=== PATIENT | female | born 1980 | race Caucasian/White ===

== ENCOUNTER 2020-02-13 10:02 | Outpatient (CLI) | payer OTHER, MEDICARE, SELFPAY ==
--- NOTE | 2020-02-13 10:27 | XR_ITS ---
WS: [id number] Chest 2 views, 02/13/2020 Clinical Data: COUGH Comparison: PA and lateral chest, 12/05/2017. Findings: No nodules, masses or effusions are seen. The heart is normal. The pulmonary vascularity is not increased. No pneumonia or pneumothorax is seen. XR/XR chest 2V* [id number] Impression: Negative chest.
== END 2020-02-13 10:03 | disposition home or self-care (01) ==
LOC: RAD 10:11
PROVIDERS: PCP Family Medicine; Visit Provider Family Medicine
DX: R05 Cough (principal)
CPT/HCPCS: 71046

== ENCOUNTER → 2020-07-23 14:33 | Outpatient (BNVA) | payer OTHER, MEDICARE, SELFPAY | PROVIDERS: PCP Family Medicine; Visit Provider Surgery | DX: Z01.812 Encounter for preprocedural laboratory examination (principal); Z20.822 Contact with and (suspected) exposure to COVID-19 | CPT/HCPCS: 87635 ==

== ENCOUNTER 2020-07-28 08:07 | Day surgery (SDC) | payer OTHER, MEDICARE, SELFPAY ==
[2020-07-27 16:42] VITALS: BMI 38.8
--- NOTE | 2020-07-28 08:51 | ANES.PREANE2 ---
Pre-Anesthetic Assessment Pre-Anesthetic Assessment: Height/Weight: Height 1.7 m Weight 112.491 kg Preop Diagnosis: Subcutaneous mass right lower back Proposed Procedure: Operation Date: 07/28/20 09:40 Proposed Procedures p Excision of lipoma right lower back 46145 D17.9(Not Applicable) - Kana Evans MD Was Beta Elbert taken within 24 hours: N/A Was Clonidine taken within 24 hours: N/A Social: Social History: Tobacco and No alcohol Exam: Pre-Anes Outpt Exam: alert, oriented x 3, clear to auscultation bilaterally and regular rate & rhythm Airway: Submandibular: WNL Cervical ROM: WNL MP: 1 Additional comments: Edentulous Pulmonary: Pulmonary: Cough CV/HEM: CV/HEM: HTN : : None reported Hepatic: Hepatic: None reported GI: GI: None reported Metabolic: Metabolic: DM, Hyperlipidemia and Morbid obesity Neuropsych: Neuropsych: Neuropathy Anesthetic Plan: ASA status: 3 Anesthesia: MAC PFSH Anesthesia PFSH: Medical History (Updated 07/23/20 @ 09:50 by Kana Evans MD) Anxiety Diabetes mellitus Hypercholesteremia Hypertension Neuropathy Surgical History (Updated 07/23/20 @ 09:50 by Kana Evans MD) H/O removal of cyst History of cholecystectomy History of hysterectomy Family History (Updated 07/23/20 @ 09:32 by Rhona Kline LPN) Father Diabetes Social History (Updated 07/23/20 @ 09:32 by Rhona Kline LPN) Smoking and tobacco status: current every day smoker cigarettes Packs smoked per day: 1 Second hand smoke exposure: Yes Alcohol intake: current Alcohol intake frequency: holidays/special occasions only Data Anesthesia Cardiac Studies: No Data to Display
--- NOTE | 2020-07-28 09:00 | W.PM.OPSUD ---
Surgery/Procedure H&P Update DATE OF PROCEDURE: July 28, 2020 DATE H&P PERFORMED: 07/23/20 H&P UPDATE INFORMATION: I have reviewed H&P completed within last 30 days, I have examined patient prior to procedure and No changes to prior documentation PREOP DIAGNOSIS: Subcutaneous mass right lower back PLANNED PROCEDURE: Operation Date: 07/28/20 09:40 Proposed Procedures p Excision of lipoma right lower back 82213 D17.9(Not Applicable) - Kana Evans MD
[2020-07-28 09:01] VITALS: BP 112/68; PULSE 80; RESP 16; TEMP 36.2
[2020-07-28] MEDS: sodium chloride 0.9% 1,000 ML 30 ML IV (09:12)
[2020-07-28 09:14] LABS: Glucose Point of Care 229 mg/dL (70-110)
[2020-07-28] MEDS: lidocaine 1% INJ 20 mL INJECTION (09:44)
--- NOTE | 2020-07-28 10:21 | PM.OP ---
Operative Report Date of procedure: July 28, 2020 Pre-op Diagnosis: Subcutaneous mass right lower back Post-op Diagnosis: 6 x 6 cm lipoma right lower back Procedure Done: Excision of a lipoma measuring 6 x 6 cm right lower back Specimens removed/disposition: Lipoma right lower back Surgeon: Kana Evans Anesthesia: MAC Condition: stable Disposition: PACU Procedure: The patient was taken to the operating room and placed in the left lateral position under MAC after IV antibiotic had been administered. The area around the palpable mass on the right lower back was prepped and draped in a sterile manner. 1% lidocaine with .5% Marcaine was infiltrated around the palpable mass and a 5 cm transverse incision was made, subcutaneous tissue was divided using electrocautery and the lipoma was dissected from the surrounding subcutaneous tissue and underlying muscular fascia. The lipoma appeared to be intramuscular in origin. There was an arterial bleeder which was suture-ligated using 3-0 Vicryl suture. The fascial defect was closed using figure of 8-0 Vicryl suture. The subcutaneous was approximated using running 3-0 Vicryl suture and skin was closed using running subcuticular 4-0 Monocryl suture and surgical glue. The patient was stable throughout the procedure and was transferred to recovery room.
[2020-07-28 10:31] VITALS: BP 114/75; PULSE 96; RESP 16; TEMP 36.1; O2SAT 95
[2020-07-28 10:35] VITALS: BP 115/63; PULSE 91; RESP 17; O2SAT 94
[2020-07-28 10:40] VITALS: BP 125/63; PULSE 85; RESP 17; TEMP 36.5; O2SAT 94
[2020-07-28 10:46] VITALS: BP 115/63; PULSE 83; RESP 18; O2SAT 95
[2020-07-28] MEDS: HYDROcodone-acetaminophen 5-325 mg Tablet 1 TAB PO (11:01)
[2020-07-28 11:05] VITALS: BP 117/62; PULSE 81; RESP 18; O2SAT 96
--- NOTE | 2020-07-28 13:36 | ANE.PACU2 ---
Inpatient post-anesthesia follow up: Airway intact: Yes Vital signs: Temperature 97.7 F Pulse Rate 81 Respiratory Rate 18 Blood Pressure 117/62 Pulse Oximetry 96 Oxygen Delivery Me thod Room Air Oxygen Flow Rate Fraction of Inspir ed Oxygen Hydration adequate: Yes Nausea and vomiting: No Pain level: 2 Mental status: Baseline
== END 2020-07-28 11:15 | disposition home or self-care (01) ==
PROVIDERS: PCP Family Medicine; Visit Provider Surgery
PROC: (CPT 11406; principal; 2020-07-28 09:40)
DX: D17.1 Benign lipomatous neoplasm of skin and subcutaneous tissue of trunk (principal); F17.210 Nicotine dependence, cigarettes, uncomplicated; F41.9 Anxiety disorder, unspecified; I10 Essential (primary) hypertension; E11.40 Type 2 diabetes mellitus with diabetic neuropathy, unspecified; Z79.4 Long term (current) use of insulin
CPT/HCPCS: 11406; 12032; 36416; 82962; 88307; 96365; J0690; J2704; J3010; J3490; J7030

== ENCOUNTER → 2021-07-25 08:40 | Outpatient (BNVA) | payer OTHER, MEDICARE, SELFPAY | PROVIDERS: PCP Family Medicine; Visit Provider Family Medicine | DX: E11.8 Type 2 diabetes mellitus with unspecified complications (principal); Z51.81 Encounter for therapeutic drug level monitoring; Z79.1 Long term (current) use of non-steroidal anti-inflammatories (NSAID) | CPT/HCPCS: 80053; 83036; 85025 ==

== ENCOUNTER → 2021-10-11 10:36 | Outpatient (BNVA) | payer OTHER, MEDICARE, SELFPAY | PROVIDERS: PCP Family Medicine; Referring Provider Dermatology; Visit Provider Internal Medicine | DX: E11.8 Type 2 diabetes mellitus with unspecified complications (principal); Z68.39 Body mass index [BMI] 39.0-39.9, adult; Z79.4 Long term (current) use of insulin; Z79.84 Long term (current) use of oral hypoglycemic drugs; F17.200 Nicotine dependence, unspecified, uncomplicated; R63.5 Abnormal weight gain; L83 Acanthosis nigricans | CPT/HCPCS: 99204 ==

== ENCOUNTER 2021-10-13 09:45 | Outpatient (CLI) | payer OTHER, MEDICARE, SELFPAY ==
[2021-10-13 10:55] LABS: Total Volume Urine 2950 ml
[2021-10-13 10:59] LABS: Urine Creatinine 36 mg/dL (28-217)
[2021-10-18 08:27] LABS: Total Urine 2950 mL; Urine Creatinine 1.06 g/24 h (0.50-2.15)
== END 2021-10-13 09:46 | disposition home or self-care (01) ==
LOC: LAB 09:47
PROVIDERS: PCP Family Medicine; Visit Provider Internal Medicine
DX: L83 Acanthosis nigricans (principal); R63.5 Abnormal weight gain
CPT/HCPCS: 82530; 82570

== ENCOUNTER → 2021-10-25 08:18 | Outpatient (BNVA) | payer OTHER, MEDICARE, SELFPAY | PROVIDERS: PCP Family Medicine; Visit Provider Family Medicine | DX: L83 Acanthosis nigricans (principal); E11.9 Type 2 diabetes mellitus without complications | CPT/HCPCS: 80053; 82607; 83036; 85025 ==

== ENCOUNTER → 2021-11-02 08:28 | Outpatient (BNVA) | payer OTHER, MEDICARE, SELFPAY | PROVIDERS: PCP Family Medicine; Visit Provider Internal Medicine | DX: E11.9 Type 2 diabetes mellitus without complications (principal); L83 Acanthosis nigricans; E88.81 Metabolic syndrome and other insulin resistance; E78.2 Mixed hyperlipidemia; R63.5 Abnormal weight gain; Z68.41 Body mass index [BMI] 40.0-44.9, adult; F17.210 Nicotine dependence, cigarettes, uncomplicated; Z79.4 Long term (current) use of insulin; Z79.84 Long term (current) use of oral hypoglycemic drugs | CPT/HCPCS: 99214 ==

== ENCOUNTER 2021-11-08 07:25 | Outpatient (CLI) | payer OTHER, MEDICARE, SELFPAY ==
[2021-11-08 08:14] LABS: Cortisol Random 1.23 ug/dL (2.47-19.5)
== END 2021-11-08 07:26 | disposition home or self-care (01) ==
LOC: LAB 07:32
PROVIDERS: PCP Family Medicine; Visit Provider Internal Medicine
DX: L83 Acanthosis nigricans (principal)
CPT/HCPCS: 36415; 82533

== ENCOUNTER 2021-11-30 08:32 | Outpatient (CLI) | payer OTHER, MEDICARE, SELFPAY ==
[2021-11-30 09:32] LABS: Chol HDL Ratio 3.29 mg/dL (0.0-4.40); Cholesterol 102 mg/dL (0-200); HDL Cholesterol 31 mg/dL (60-100); LDL Cholesterol Calculated 36 mg/dL (50-129); LDL HDL Ratio 1.16 RATIO (0.00-3.22); Triglycerides 176 mg/dL (0-150)
[2021-11-30 09:47] LABS: Estmated Average Glucose 146; Hemoglobin A1C 6.7 % (4.0-6.0)
== END 2021-11-30 08:33 | disposition home or self-care (01) ==
PROVIDERS: PCP Family Medicine; Visit Provider Internal Medicine
DX: E11.9 Type 2 diabetes mellitus without complications (principal); E78.2 Mixed hyperlipidemia; E88.81 Metabolic syndrome and other insulin resistance
CPT/HCPCS: 80061; 83036

== ENCOUNTER 2021-12-06 13:46 | Outpatient (CLI) | payer OTHER, MEDICARE, SELFPAY ==
[2021-12-06 14:44] LABS: Lipase 86 U/L (13-60)
== END 2021-12-06 13:47 | disposition home or self-care (01) ==
PROVIDERS: PCP Family Medicine; Visit Provider Internal Medicine
DX: E87.2 Acidosis (principal)
CPT/HCPCS: 36415; 83690

== ENCOUNTER → 2022-01-25 09:11 | Outpatient (BNVA) | payer OTHER, MEDICARE, SELFPAY | PROVIDERS: PCP Family Medicine; Visit Provider Family Medicine | DX: E53.8 Deficiency of other specified B group vitamins (principal); Z51.81 Encounter for therapeutic drug level monitoring; E78.2 Mixed hyperlipidemia; L83 Acanthosis nigricans; E88.81 Metabolic syndrome and other insulin resistance; R63.5 Abnormal weight gain | CPT/HCPCS: 80053; 80061; 82607; 83036; 85025 ==

== ENCOUNTER → 2022-02-08 13:13 | Outpatient (BNVA) | payer OTHER, MEDICARE, SELFPAY | PROVIDERS: PCP Family Medicine; Visit Provider Internal Medicine | DX: E11.9 Type 2 diabetes mellitus without complications (principal); L83 Acanthosis nigricans; R63.5 Abnormal weight gain; E88.81 Metabolic syndrome and other insulin resistance; E78.2 Mixed hyperlipidemia; Z79.4 Long term (current) use of insulin; Z79.84 Long term (current) use of oral hypoglycemic drugs; F17.210 Nicotine dependence, cigarettes, uncomplicated; Z68.37 Body mass index [BMI] 37.0-37.9, adult | CPT/HCPCS: 99214 ==

== ENCOUNTER 2022-04-11 12:06 | Outpatient (CLI) | payer OTHER, MEDICARE, SELFPAY ==
[2022-04-11 12:48] LABS: Estmated Average Glucose 128; Hemoglobin A1C 6.1 % (4.0-6.0)
== END 2022-04-11 12:07 | disposition home or self-care (01) ==
PROVIDERS: Internal Medicine; PCP Family Medicine; Visit Provider Family Medicine
DX: E11.9 Type 2 diabetes mellitus without complications (principal)
CPT/HCPCS: 36415; 83036

== ENCOUNTER → 2022-05-11 13:20 | Outpatient (BNVA) | payer OTHER, MEDICARE, SELFPAY | PROVIDERS: PCP Family Medicine; Visit Provider Internal Medicine | DX: E11.9 Type 2 diabetes mellitus without complications (principal); L83 Acanthosis nigricans; R63.5 Abnormal weight gain; E88.81 Metabolic syndrome and other insulin resistance; E78.2 Mixed hyperlipidemia; Z79.84 Long term (current) use of oral hypoglycemic drugs; Z79.4 Long term (current) use of insulin; Z68.34 Body mass index [BMI] 34.0-34.9, adult | CPT/HCPCS: 99214 ==

== ENCOUNTER → 2022-07-24 14:47 | Outpatient (BNVA) | payer OTHER, MEDICARE, SELFPAY | PROVIDERS: PCP Family Medicine; Visit Provider Registered Nurse Neonatal Intensive Care | DX: S99.922A Unspecified injury of left foot, initial encounter (principal); M79.672 Pain in left foot; M79.89 Other specified soft tissue disorders; R20.0 Anesthesia of skin; X58.XXXA Exposure to other specified factors, initial encounter | CPT/HCPCS: 73630 ==

== ENCOUNTER 2022-08-02 08:02 | Outpatient (CLI) | payer OTHER, MEDICARE, SELFPAY ==
[2022-08-02 08:43] LABS: Estmated Average Glucose 131; Hemoglobin A1C 6.2 % (4.0-6.0)
[2022-08-02 08:45] LABS: Alanine Aminotransferase 20 U/L (0-33); Albumin Level 4.5 g/dL (3.5-5.2); Alkaline Phosphatase 84 U/L (35-105); Anion Gap 15.9 (5-19); Aspartate Amino Transferase 17 U/L (0-32); Blood Urea Nitrogen 18 mg/dL (6-20); Calcium 9.7 mg/dL (8.5-10.5); Carbon Dioxide 25 mmol/L (22-29); Chloride 100 mmol/L (98-107); Chol HDL Ratio 2.84 mg/dL (0.0-4.40); Cholesterol 125 mg/dL (0-200); Globulin 3.3 g/dL (1.3-4.6); Glucose 128 mg/dL (65-115); HDL Cholesterol 44 mg/dL (60-100); LDL Cholesterol Calculated 45 mg/dL (50-129); LDL HDL Ratio 1.02 RATIO (0.00-3.22); Osmolality Calculated 288 mOsm/kg (285-295); Potassium 3.9 mmol/L (3.5-5.1); Sodium 137 mmol/L (136-145); Total Bilirubin 0.4 mg/dL (0.15-1.2); Total Protein 7.8 g/dL (6.6-8.7); Triglycerides 178 mg/dL (0-150)
[2022-08-02 08:51] LABS: Creatinine Urine, Random 34 mg/dL (28-217); Microalbum Creatinine Ratio Ur 29 mg/dL (0-20); Microalbumin Random Urine 1 ug/dL (0-20)
== END 2022-08-02 08:03 | disposition home or self-care (01) ==
LOC: LAB 08:08
PROVIDERS: PCP Family Medicine; Visit Provider Internal Medicine
DX: L83 Acanthosis nigricans (principal); E11.9 Type 2 diabetes mellitus without complications; E78.2 Mixed hyperlipidemia; E88.81 Metabolic syndrome and other insulin resistance; R63.5 Abnormal weight gain
CPT/HCPCS: 36415; 80053; 80061; 82044; 83036

== ENCOUNTER → 2022-08-08 12:42 | Outpatient (BNVA) | payer OTHER, MEDICARE, SELFPAY | PROVIDERS: PCP Family Medicine; Visit Provider Internal Medicine | DX: E11.9 Type 2 diabetes mellitus without complications (principal); E78.2 Mixed hyperlipidemia; L83 Acanthosis nigricans; R63.5 Abnormal weight gain; E88.81 Metabolic syndrome and other insulin resistance; Z79.4 Long term (current) use of insulin; Z79.84 Long term (current) use of oral hypoglycemic drugs; Z68.32 Body mass index [BMI] 32.0-32.9, adult | CPT/HCPCS: 99214 ==

== ENCOUNTER 2022-11-03 08:57 | Outpatient (CLI) | payer OTHER, MEDICARE, SELFPAY ==
[2022-11-03 10:36] LABS: Alanine Aminotransferase 26 U/L (0-33); Albumin Level 4.5 g/dL (3.5-5.2); Alkaline Phosphatase 77 U/L (35-105); Anion Gap 17.1 (5-19); Aspartate Amino Transferase 19 U/L (0-32); Blood Urea Nitrogen 11 mg/dL (6-20); Calcium 9.4 mg/dL (8.5-10.5); Carbon Dioxide 25 mmol/L (22-29); Chloride 102 mmol/L (98-107); Chol HDL Ratio 2.25 mg/dL (0.0-4.40); Cholesterol 135 mg/dL (0-200); Glomerular Filtration Rate 173.4 mL/min (90-130); Glucose 118 mg/dL (65-115); HDL Cholesterol 60 mg/dL (60-100); LDL Cholesterol Calculated 47 mg/dL (50-129); LDL HDL Ratio 0.78 RATIO (0.00-3.22); Osmolality Calculated 290 mOsm/kg (285-295); Potassium 4.1 mmol/L (3.5-5.1); Sodium 140 mmol/L (136-145); Total Bilirubin 0.3 mg/dL (0.15-1.2); Total Protein 7.5 g/dL (6.6-8.7); Triglycerides 140 mg/dL (0-150)
[2022-11-03 10:54] LABS: Creatinine Urine, Random 18 mg/dL (28-217); Microalbumin Random Urine 1 ug/dL (0-20)
[2022-11-03 10:55] LABS: Microalbum Creatinine Ratio Ur 56 mg/dL (0-20)
[2022-11-03 11:41] LABS: Estmated Average Glucose 137; Hemoglobin A1C 6.4 % (4.0-6.0)
== END 2022-11-03 08:58 | disposition home or self-care (01) ==
PROVIDERS: PCP Family Medicine; Visit Provider Internal Medicine
DX: E11.9 Type 2 diabetes mellitus without complications (principal); E88.81 Metabolic syndrome and other insulin resistance
CPT/HCPCS: 36415; 80053; 80061; 82044; 83036

== ENCOUNTER → 2022-11-08 09:59 | Outpatient (BNVA) | payer MEDICARE, OTHER, SELFPAY | PROVIDERS: PCP Family Medicine; Visit Provider Internal Medicine | DX: E11.9 Type 2 diabetes mellitus without complications (principal); L83 Acanthosis nigricans; R63.5 Abnormal weight gain; E88.81 Metabolic syndrome and other insulin resistance; E78.2 Mixed hyperlipidemia; Z79.4 Long term (current) use of insulin; Z79.84 Long term (current) use of oral hypoglycemic drugs; Z68.30 Body mass index [BMI] 30.0-30.9, adult | CPT/HCPCS: 99214 ==

== ENCOUNTER 2023-02-26 08:14 | Outpatient (CLI) | payer OTHER, MEDICARE, SELFPAY ==
[2023-02-26 09:13] LABS: Alanine Aminotransferase 24 U/L (0-33); Albumin Level 4.4 g/dL (3.5-5.2); Alkaline Phosphatase 76 U/L (35-105); Aspartate Amino Transferase 17 U/L (0-32); Blood Urea Nitrogen 9 mg/dL (6-20); Calcium 9.3 mg/dL (8.5-10.5); Carbon Dioxide 26 mmol/L (22-29); Chloride 99 mmol/L (98-107); Chol HDL Ratio 3.27 mg/dL (0.0-4.40); Cholesterol 134 mg/dL (0-200); Globulin 3.4 g/dL (1.3-4.6); Glomerular Filtration Rate 108.6 mL/min (90-130); Glucose 178 mg/dL (65-115); HDL Cholesterol 41 mg/dL (60-100); LDL Cholesterol Calculated 58 mg/dL (50-129); LDL HDL Ratio 1.41 RATIO (0.00-3.22); Osmolality Calculated 285 mOsm/kg (285-295); Sodium 136 mmol/L (136-145); Total Bilirubin 0.6 mg/dL (0.15-1.2); Total Protein 7.8 g/dL (6.6-8.7); Triglycerides 173 mg/dL (0-150)
[2023-02-26 09:26] LABS: Creatinine Urine, Random 117 mg/dL (28-217); Microalbum Creatinine Ratio Ur 9 mg/dL (0-20); Microalbumin Random Urine 1 ug/dL (0-20)
[2023-02-26 10:46] LABS: Estmated Average Glucose 189; Hemoglobin A1C 8.2 % (4.0-6.0)
== END 2023-02-26 08:15 | disposition home or self-care (01) ==
LOC: LAB 08:15
PROVIDERS: PCP Family Medicine; Visit Provider Internal Medicine
DX: E11.9 Type 2 diabetes mellitus without complications (principal); L83 Acanthosis nigricans; R63.5 Abnormal weight gain; E78.2 Mixed hyperlipidemia; E88.810 Metabolic syndrome
CPT/HCPCS: 36415; 80053; 80061; 82044; 83036

== ENCOUNTER → 2023-03-01 08:32 | Outpatient (BNVA) | payer OTHER, MEDICARE, SELFPAY | PROVIDERS: PCP Family Medicine; Visit Provider Internal Medicine | DX: E11.9 Type 2 diabetes mellitus without complications (principal); L83 Acanthosis nigricans; R63.5 Abnormal weight gain; E78.2 Mixed hyperlipidemia; Z79.4 Long term (current) use of insulin; Z79.85 Long-term (current) use of injectable non-insulin antidiabetic drugs; Z68.33 Body mass index [BMI] 33.0-33.9, adult | CPT/HCPCS: 99214 ==

== ENCOUNTER 2023-04-25 14:29 | Outpatient (CLI) | payer OTHER, MEDICARE, SELFPAY ==
--- NOTE | 2023-04-25 14:45 | US_ITS ---
WS: [id number] US pelv w/transvag [id number] HISTORY: Pelvic pain COMPARISON: None available. Prior hysterectomy. There is no midline mass. No free fluid in the pelvis. Neither ovary nor uterus i dentified. IMPRESSION: Status post hysterectomy. No uterus or ovary identified. No pelvic mass.
== END 2023-04-25 14:30 | disposition home or self-care (01) ==
LOC: RAD 14:30
PROVIDERS: PCP Family Medicine; Visit Provider Family Medicine
DX: R10.2 Pelvic and perineal pain (principal); Z90.710 Acquired absence of both cervix and uterus
CPT/HCPCS: 76830; 76856

== ENCOUNTER 2023-05-25 09:54 | Outpatient (CLI) | payer OTHER, MEDICARE, SELFPAY ==
[2023-05-25 10:27] LABS: Estmated Average Glucose 146; Hemoglobin A1C 6.7 % (4.0-6.0)
[2023-05-25 10:35] LABS: Creatinine Urine, Random 60 mg/dL (28-217); Microalbum Creatinine Ratio Ur 17 mg/dL (0-20); Microalbumin Random Urine 1 ug/dL (0-20)
[2023-05-25 10:38] LABS: Alanine Aminotransferase 22 U/L (0-33); Albumin Level 4.6 g/dL (3.5-5.2); Alkaline Phosphatase 82 U/L (35-105); Anion Gap 18.2 (5-19); Aspartate Amino Transferase 21 U/L (0-32); Blood Urea Nitrogen 13 mg/dL (6-20); Calcium 9.5 mg/dL (8.5-10.5); Carbon Dioxide 23 mmol/L (22-29); Chloride 99 mmol/L (98-107); Chol HDL Ratio 2.96 mg/dL (0.0-4.40); Cholesterol 142 mg/dL (0-200); Globulin 2.7 g/dL (1.3-4.6); Glomerular Filtration Rate 133.4 mL/min (90-130); Glucose 142 mg/dL (65-115); HDL Cholesterol 48 mg/dL (60-100); LDL Cholesterol Calculated 52 mg/dL (50-129); LDL HDL Ratio 1.08 RATIO (0.00-3.22); Osmolality Calculated 285 mOsm/kg (285-295); Potassium 4.2 mmol/L (3.5-5.1); Sodium 136 mmol/L (136-145); Total Bilirubin 0.5 mg/dL (0.15-1.2); Total Protein 7.3 g/dL (6.6-8.7); Triglycerides 211 mg/dL (0-150)
== END 2023-05-25 09:55 | disposition home or self-care (01) ==
LOC: LAB 09:54
PROVIDERS: PCP Family Medicine; Visit Provider Internal Medicine
DX: E11.9 Type 2 diabetes mellitus without complications (principal)
CPT/HCPCS: 36415; 80053; 80061; 82044; 83036

== ENCOUNTER → 2023-05-29 10:48 | Outpatient (BNVA) | payer OTHER, MEDICARE, SELFPAY | PROVIDERS: PCP Family Medicine; Visit Provider Internal Medicine | DX: E11.9 Type 2 diabetes mellitus without complications (principal); R63.5 Abnormal weight gain; E78.2 Mixed hyperlipidemia; Z79.4 Long term (current) use of insulin; Z79.84 Long term (current) use of oral hypoglycemic drugs; Z68.36 Body mass index [BMI] 36.0-36.9, adult | CPT/HCPCS: 99214 ==

== ENCOUNTER 2023-09-17 08:30 | Outpatient (CLI) | payer OTHER, MEDICARE, SELFPAY ==
[2023-09-17 10:08] LABS: Alanine Aminotransferase 27 U/L (0-33); Albumin Level 4.3 g/dL (3.5-5.2); Alkaline Phosphatase 113 U/L (35-105); Anion Gap 16.1 (5-19); Aspartate Amino Transferase 16 U/L (0-32); Blood Urea Nitrogen 15 mg/dL (6-20); Calcium 9.2 mg/dL (8.5-10.5); Carbon Dioxide 24 mmol/L (22-29); Chloride 99 mmol/L (98-107); Chol HDL Ratio 3.43 mg/dL (0.0-4.40); Cholesterol 175 mg/dL (0-200); Globulin 3.4 g/dL (1.3-4.6); Glomerular Filtration Rate 108.1 mL/min (90-130); Glucose 297 mg/dL (65-115); HDL Cholesterol 51 mg/dL (60-100); LDL Cholesterol Calculated 88 mg/dL (50-129); LDL HDL Ratio 1.73 RATIO (0.00-3.22); Osmolality Calculated 292 mOsm/kg (285-295); Potassium 4.1 mmol/L (3.5-5.1); Sodium 135 mmol/L (136-145); Total Bilirubin 0.3 mg/dL (0.15-1.2); Total Protein 7.7 g/dL (6.6-8.7); Triglycerides 180 mg/dL (0-150)
[2023-09-17 10:27] LABS: Creatinine Urine, Random 36 mg/dL (28-217); Microalbum Creatinine Ratio Ur 28 mg/dL (0-20); Microalbumin Random Urine 1 ug/dL (0-20)
[2023-09-17 10:30] LABS: Estmated Average Glucose 197; Hemoglobin A1C 8.5 % (4.0-6.0)
== END 2023-09-17 08:31 | disposition home or self-care (01) ==
LOC: LAB 08:31
PROVIDERS: PCP Family Medicine; Visit Provider Internal Medicine
DX: E11.9 Type 2 diabetes mellitus without complications (principal); E78.2 Mixed hyperlipidemia
CPT/HCPCS: 36415; 80053; 80061; 82044; 83036

== ENCOUNTER → 2023-09-24 14:49 | Outpatient (BNVA) | payer OTHER, MEDICARE, SELFPAY | PROVIDERS: PCP Family Medicine; Visit Provider Podiatrist Foot & Ankle Surgery | DX: M19.072 Primary osteoarthritis, left ankle and foot; E11.42 Type 2 diabetes mellitus with diabetic polyneuropathy; G62.9 Polyneuropathy, unspecified; F17.210 Nicotine dependence, cigarettes, uncomplicated; Z79.4 Long term (current) use of insulin; Z79.84 Long term (current) use of oral hypoglycemic drugs | CPT/HCPCS: 73630 ==

== ENCOUNTER 2023-12-17 07:20 | Outpatient (CLI) | payer OTHER, MEDICARE, SELFPAY ==
[2023-12-17 08:19] LABS: Alanine Aminotransferase 18 U/L (0-33); Albumin Level 4.3 g/dL (3.5-5.2); Alkaline Phosphatase 101 U/L (35-105); Blood Urea Nitrogen 12 mg/dL (6-20); Carbon Dioxide 25 mmol/L (22-29); Chloride 91 mmol/L (98-107); Chol HDL Ratio 3.45 mg/dL (0.0-4.40); Cholesterol 138 mg/dL (0-200); Globulin 3.2 g/dL (1.3-4.6); Glomerular Filtration Rate 108.1 mL/min (90-130); Glucose 242 mg/dL (65-115); HDL Cholesterol 40 mg/dL (60-100); LDL Cholesterol Calculated 51 mg/dL (50-129); LDL HDL Ratio 1.28 RATIO (0.00-3.22); Osmolality Calculated 276 mOsm/kg (285-295); Sodium 129 mmol/L (136-145); Total Bilirubin 0.3 mg/dL (0.15-1.2); Total Protein 7.5 g/dL (6.6-8.7); Triglycerides 234 mg/dL (0-150)
[2023-12-17 08:23] LABS: Creatinine Urine, Random 145 mg/dL (28-217); Microalbumin Random Urine 13 ug/dL (0-20)
[2023-12-17 08:24] LABS: Anion Gap 17.5 (5-19); Aspartate Amino Transferase 19 U/L (0-32); Potassium 4.5 mmol/L (3.5-5.1)
[2023-12-17 08:24] LABS: Microalbum Creatinine Ratio Ur 90 mg/dL (0-20)
[2023-12-17 08:25] LABS: Estmated Average Glucose 197; Hemoglobin A1C 8.5 % (4.0-6.0)
== END 2023-12-17 07:21 | disposition home or self-care (01) ==
LOC: LAB 07:21
PROVIDERS: PCP Family Medicine; Visit Provider Internal Medicine
DX: E11.9 Type 2 diabetes mellitus without complications (principal); E78.2 Mixed hyperlipidemia
CPT/HCPCS: 80053; 80061; 82044; 83036

== ENCOUNTER 2023-12-26 10:13 | Outpatient (CLI) | payer MEDICARE, OTHER, SELFPAY ==
[2023-12-26 11:14] LABS: Anion Gap 19.9 (5-19); Blood Urea Nitrogen 9 mg/dL (6-20); Calcium 9.4 mg/dL (8.5-10.5); Carbon Dioxide 22 mmol/L (22-29); Chloride 98 mmol/L (98-107); Glomerular Filtration Rate 133.4 mL/min (90-130); Glucose 204 mg/dL (65-115); Osmolality Calculated 287 mOsm/kg (285-295); Potassium 3.9 mmol/L (3.5-5.1); Sodium 136 mmol/L (136-145)
== END 2023-12-26 10:14 | disposition home or self-care (01) ==
PROVIDERS: PCP Family Medicine; Visit Provider Internal Medicine
DX: E87.1 Hypo-osmolality and hyponatremia (principal)
CPT/HCPCS: 36415; 80048

== ENCOUNTER → 2023-12-27 10:31 | Outpatient (BNVA) | payer MEDICARE, OTHER, SELFPAY | PROVIDERS: PCP Family Medicine; Visit Provider Internal Medicine | DX: E11.9 Type 2 diabetes mellitus without complications (principal); L83 Acanthosis nigricans; R63.5 Abnormal weight gain; E78.2 Mixed hyperlipidemia; M19.079 Primary osteoarthritis, unspecified ankle and foot; Z79.4 Long term (current) use of insulin; Z79.84 Long term (current) use of oral hypoglycemic drugs; Z68.37 Body mass index [BMI] 37.0-37.9, adult | CPT/HCPCS: 99214 ==

== ENCOUNTER 2024-03-24 07:27 | Outpatient (CLI) | payer MEDICARE, OTHER, SELFPAY ==
[2024-03-24 08:10] LABS: Estmated Average Glucose 192; Hemoglobin A1C 8.3 % (4.0-6.0)
[2024-03-24 08:15] LABS: Alanine Aminotransferase 20 U/L (0-33); Albumin Level 4.2 g/dL (3.5-5.2); Alkaline Phosphatase 78 U/L (35-105); Anion Gap 18.1 (5-19); Aspartate Amino Transferase 14 U/L (0-32); Blood Urea Nitrogen 15 mg/dL (6-20); Calcium 9.3 mg/dL (8.5-10.5); Carbon Dioxide 23 mmol/L (22-29); Chloride 97 mmol/L (98-107); Chol HDL Ratio 3.36 mg/dL (0.0-4.40); Cholesterol 141 mg/dL (0-200); Globulin 3.2 g/dL (1.3-4.6); Glomerular Filtration Rate 108.1 mL/min (90-130); Glucose 242 mg/dL (65-115); HDL Cholesterol 42 mg/dL (60-100); LDL Cholesterol Calculated 57 mg/dL (50-129); LDL HDL Ratio 1.36 RATIO (0.00-3.22); Osmolality Calculated 287 mOsm/kg (285-295); Potassium 4.1 mmol/L (3.5-5.1); Sodium 134 mmol/L (136-145); Total Bilirubin 0.3 mg/dL (0.15-1.2); Total Protein 7.4 g/dL (6.6-8.7); Triglycerides 212 mg/dL (0-150)
[2024-03-24 08:22] LABS: Creatinine Urine, Random 36 mg/dL (28-217); Microalbum Creatinine Ratio Ur 28 mg/dL (0-20); Microalbumin Random Urine 1 ug/dL (0-20)
== END 2024-03-24 07:28 | disposition home or self-care (01) ==
LOC: LAB 07:29
PROVIDERS: PCP Family Medicine; Visit Provider Internal Medicine
DX: E88.810 Metabolic syndrome (principal); E88.819 Insulin resistance, unspecified; E78.2 Mixed hyperlipidemia; E11.9 Type 2 diabetes mellitus without complications
CPT/HCPCS: 36415; 80053; 80061; 82044; 83036

== ENCOUNTER → 2024-03-25 15:26 | Outpatient (BNVA) | payer MEDICARE, OTHER, SELFPAY | PROVIDERS: PCP Family Medicine; Visit Provider Podiatrist Foot & Ankle Surgery | DX: M79.672 Pain in left foot (principal); M19.072 Primary osteoarthritis, left ankle and foot; E11.42 Type 2 diabetes mellitus with diabetic polyneuropathy; G62.9 Polyneuropathy, unspecified; F17.200 Nicotine dependence, unspecified, uncomplicated; Z79.4 Long term (current) use of insulin; Z79.84 Long term (current) use of oral hypoglycemic drugs | CPT/HCPCS: 73630; 99213 ==

== ENCOUNTER 2024-04-15 14:56 | Outpatient (CLI) | payer OTHER, MEDICARE, SELFPAY ==
--- NOTE | 2024-04-15 15:15 | MRR_ITS ---
PROCEDURE INFORMATION: Exam: MR Left Lower Extremity Other Than Joint Without Contrast; Foot Exam date and time: 04/15/2024 3:33 PM Age: 44 years old Clinical indication: Left; Lt foot pain across bottom of foot, marker in center. Injured walking 1 year ago. ; Additional info: Continued pain x several months TECHNIQUE: Imaging protocol: Magnetic resonance imaging of the left lower extremity without contrast. Exam focused on the foot. COMPARISON: CR XR foot LT min 3V* [id number] 03/25/2024 3:33 PM FINDINGS: Bones/joints: Ganglion cyst measuring 1.2 x 0.8 cm at the medial aspect of the 2nd proximal phalanx likely extending from the previously visualized mild flexion deformity of the PIP joint with small ossific density at the base of the middle phalanx likely representing avulsion injury. Plantar plates are grossly intact. Mild degenerative change of the 1st metatarsophalangeal joint with associated moderate joint effusion. Diffuse dorsal predominant midfoot degenerative change. LIGAMENTS: Lisfranc ligament: Unremarkable. No evidence of tear. TENDONS: Flexor tendons of foot: Unremarkable. No evidence of tear. Tibialis posterior tendon: Unremarkable as visualized. Peroneal tendons: Unremarkable as visualized. Extensor tendons of foot: Unremarkable. No evidence of tear. Tibialis anterior tendon: Unremarkable as visualized. Tarsal canal (Sinus tarsi): Not visualized. Tarsal tunnel: Not visualized. Bursae: Mild intermetatarsal bursitis at the 3rd and 4th metatarsals. Soft tissues: Mild edema surrounding the tendon of the 3rd flexor digitorum longus and brevis, of the adjacent 2nd and 3rd lumbricals and at the plantar aponeurosis. Plantar fascia: Mild edema of the plantar aponeurosis at the skin marker. Otherwise the plantar fascia is unremarkable. MR/MR foot LT wo con* [id number] IMPRESSION: 1. At the skin marker there is mild edema at the plantar aponeurosis, 2nd and 3rd lumbricals surrounding the 3rd flexor digitorum longus and brevis tendons which are otherwise intact. 2. Prior avulsion injury at the 2nd PIP joint with associated ganglion cyst as above. 3. Mild intermetatarsal bursitis at the 3rd and 4th metatarsals.
== END 2024-04-15 14:57 | disposition home or self-care (01) ==
PROVIDERS: PCP Family Medicine; Visit Provider Podiatrist Foot & Ankle Surgery
DX: M19.072 Primary osteoarthritis, left ankle and foot (principal); M71.572 Other bursitis, not elsewhere classified, left ankle and foot; M67.472 Ganglion, left ankle and foot; R93.6 Abnormal findings on diagnostic imaging of limbs
CPT/HCPCS: 73718

== ENCOUNTER → 2024-04-21 12:15 | Outpatient (BNVA) | payer MEDICARE, OTHER, SELFPAY | PROVIDERS: PCP Family Medicine; Visit Provider Family Medicine | DX: R74.8 Abnormal levels of other serum enzymes (principal); M19.079 Primary osteoarthritis, unspecified ankle and foot; M79.672 Pain in left foot; R10.2 Pelvic and perineal pain; F41.9 Anxiety disorder, unspecified; F32.A Depression, unspecified | CPT/HCPCS: 82150; 83690 ==

== ENCOUNTER → 2024-04-23 07:22 | Outpatient (BNVA) | payer MEDICARE, OTHER, SELFPAY | PROVIDERS: PCP Family Medicine; Visit Provider Podiatrist Foot & Ankle Surgery | DX: M79.672 Pain in left foot (principal); G62.9 Polyneuropathy, unspecified; F17.200 Nicotine dependence, unspecified, uncomplicated; E11.42 Type 2 diabetes mellitus with diabetic polyneuropathy; M19.072 Primary osteoarthritis, left ankle and foot; Z79.4 Long term (current) use of insulin; Z79.84 Long term (current) use of oral hypoglycemic drugs | CPT/HCPCS: 99213 ==

== ENCOUNTER → 2024-05-05 10:14 | Outpatient (BNVA) | payer MEDICARE, OTHER, SELFPAY | PROVIDERS: PCP Family Medicine; Visit Provider Family Medicine | DX: R10.13 Epigastric pain (principal); Z51.81 Encounter for therapeutic drug level monitoring | CPT/HCPCS: 80053; 83690; 85025; 86141 ==

== ENCOUNTER 2024-05-08 15:09 | Outpatient (CLI) | payer MEDICARE, OTHER, SELFPAY ==
--- NOTE | 2024-05-08 15:30 | CT_ITS ---
WS: [id number] CT ABDOMEN AND PELVIS WITH CONTRAST HISTORY: Elevated lipase, epigastric pain TECHNIQUE: Imaging performed of the abdomen and pelvis with IV contrast. Single phase imaging of the abdomen. Coronal and sagittal reformats are submitted. All CT scans at [facility] use at least one of these dose optimization techniques: automated exposure control; mA and/or kV adjustment per patient size (includes targeted exams where dose is matched to clinical indication); or iterative reconstruction. IV CONTRAST: Omnipaque 350; 100 mL IV. Oral contrast: No DLP: 977.75 mGy.cm COMPARISON: 12/18/2018 Lower thorax: Subpleural nodule RIGHT middle lobe is stable since 2019 measuring 3 mm. No pulmonary mass or pneumonia. Heart is normal size. Small hiatal hernia. Liver/biliary system: Liver is slightly enlarged. Lobulated contour of the liver suggesting cirrhosis. There is a single subcapsular 9 mm low-attenuation nodule which is reidentified. This nodule was present in 2019 with minimal increase in size. No additional masses. Normal portal vein. Gallbladder: Prior cholecystectomy. Common bile duct is normal size. Pancreas: Normal size pancreas and pancreatic duct. No adjacent inflammation. Spleen: Normal size spleen. No mass or infarct. Adrenal glands: Normal. Right kidney: Normal. Left kidney: Normal size kidney. Mid cortical cyst measures 7 mm and stable. No obstruction. Aorta: Normal. Lymphadenopathy: Soft tissue mass is probably a lymph node near the maria c hepatis measuring 2.4 x 3.1 cm. Closely associated with the pancreatic head. Does not definitely connect to the pancreatic head. There are a few smaller adjacent precaval lymph nodes. Free fluid: None. GI tract: Nondistended stomach. No small bowel obstruction. Normal appendix. Mild diverticular disease without acute diverticulitis. Focal asymmetric short segment wall thickening involving the sigmoid colon. May be under distention, early neoplasm cannot be excluded on this appearance. Abdominal wall: Fat containing umbilical hernia. Pelvis: Prior hysterectomy. No pelvic mass. No free fluid or adenopathy. Bones: L4 anterolisthesis by 5 mm. Facet joint arthropathy at L3-4, L4-5 and L5-S1. CT/CT abdomen pelvis w con* [id number] IMPRESSION: 1. No renal obstruction or mass. 2. Normal appendix. 3. No peripancreatic inflammation or evidence for acute pancreatitis. 4. There is a lobulated soft tissue mass near the pancreatic head/maria c hepati s which needs to be further evaluated. Mass measures 2.4 x 3.1 cm. This may be a lymph node. Cannot completely exclude exophytic mass from the pancreatic head . Consider follow-up PET/CT imaging to exclude lymphadenopathy or pancreatic ab normality. 5. Cirrhotic liver. 6. Prior cholecystectomy. 7. Minimal increase in size of the LEFT subcapsular hepatic lobe lesion measur ing 7 mm. Minimal progression since 2019. 8. Mild diverticular disease without acute diverticulitis. Short segment area of asymmetric mucosal thickening of the sigmoid colon. Consider further evaluat ion by colonoscopy. This may be an early colonic neoplasm or related to underdi stention and diverticular disease.
[2024-05-08] MEDS: iohexol 350 mg/mL 500 mL Btl (per mL) IV (15:42)
== END 2024-05-08 15:10 | disposition home or self-care (01) ==
PROVIDERS: PCP Family Medicine; Visit Provider Family Medicine
DX: R74.8 Abnormal levels of other serum enzymes (principal); R10.9 Unspecified abdominal pain; R93.2 Abnormal findings on diagnostic imaging of liver and biliary tract; K76.89 Other specified diseases of liver; Z90.49 Acquired absence of other specified parts of digestive tract; K86.9 Disease of pancreas, unspecified; K57.90 Diverticulosis of intestine, part unspecified, without perforation or abscess without bleeding; R93.89 Abnormal findings on diagnostic imaging of other specified body structures; K44.9 Diaphragmatic hernia without obstruction or gangrene; N28.1 Cyst of kidney, acquired; R59.0 Localized enlarged lymph nodes; K42.9 Umbilical hernia without obstruction or gangrene; Z98.890 Other specified postprocedural states; M43.16 Spondylolisthesis, lumbar region; M47.896 Other spondylosis, lumbar region; M47.897 Other spondylosis, lumbosacral region
CPT/HCPCS: 74177

== ENCOUNTER 2024-05-14 14:00 | Outpatient (CLI) | payer MEDICARE, OTHER, SELFPAY | END 2024-05-14 14:01 | disposition home or self-care (01) | LOC: SPT 14:00 | PROVIDERS: PCP Family Medicine; Visit Provider Podiatrist Foot & Ankle Surgery | DX: Z46.89 Encounter for fitting and adjustment of other specified devices (principal); M19.079 Primary osteoarthritis, unspecified ankle and foot | CPT/HCPCS: 97760; L3030 ==

== ENCOUNTER 2024-05-16 13:52 | Outpatient (CLI) | payer OTHER, MEDICARE, SELFPAY ==
--- NOTE | 2024-05-16 14:30 | PETR_ITS ---
PROCEDURE INFORMATION: Exam: PET/CT Skull Base to Mid-thigh Exam date and time: 05/16/2024 2:54 PM Age: 44 years old Clinical indication: Abnormal radiologic findings on CT abdomen pelvis with contrast on 05/08/2024; There is a lobulated soft tissue mass near the pancreatic head/maria c hepatis which needs to be further evaluated. Mass measures 2.4 x 3.1 cm. Prior surgery; Surgery date: 6+ months; Surgery type: Hyst; LABS AND CLINICAL REPORTS: Glucose: 124 mg/dl Treatment strategy for malignancy (PET staging): Initial Staging (PI) TECHNIQUE: Imaging protocol: Following at least four-hour fasting and following the injection of radiopharmaceutical, low dose CT images were obtained. Then, PET images were obtained. Attenuation corrected images were constructed using the CT scan. Fused images of PET and CT were reviewed. The standardized uptake values (SUV) reported below are maximum values within a region of interest, expressed in gm/ml. Exam includes orbital meatal line to mid-thigh. SUV normalization method: BodyWeight Radiopharmaceutical: 11 mCi F-18 FDG (Fluorodeoxyglucose), IV. Time of imaging post radiopharmaceutical administration: 46 minutes Injection site: LEFT AC COMPARISON: CT abdomen pelvis w con* 05/08/2024 and 12/18/2018 FINDINGS: Brain: Normal physiologic uptake. Pharynx: Small focus of intense uptake of 9.2 SUV noted in the midline between the top of the tongue and the palate. Larynx: No abnormal uptake. Lungs, pleura and trachea: No abnormal uptake. No lung nodules or masses. Heterogenous density of lung parenchyma similar to prior exam is suggestive of mosaic perfusion for clinical correlation with small airway disease. No pleural effusion. Heart: No abnormal uptake. There is no cardiomegaly. No coronary artery calcification is visualized. There is no pericardial effusion. Mediastinal space: No abnormal uptake. Liver: No abnormal uptake. Maximum uptake is 4.4 SUV. Stable mild nodularity of liver contours suspicious for cirrhosis. Stable 1 cm simple cyst in the segment 2 Gallbladder and biliary ducts: No abnormal uptake. Status post cholecystectomy. Pancreas: No abnormal uptake. Spleen: No abnormal uptake. No splenomegaly. Adrenal glands: No abnormal uptake. Kidneys and ureters: Normal physiologic uptake. Stomach and bowel: Intense uptake in the entire length of the colon with no corresponding CT abnormality is likely benign. Intraperitoneal and retroperitoneal spaces: No abnormal uptake. No ascites. Bladder: Normal physiologic uptake. Reproductive: No abnormal uptake. The uterus is absent post surgically. Two normal ovaries are in place. Vasculature: No abnormal uptake. No aortic aneurysm. Lymph nodes: No FDG avid lymphadenopathy in the neck, chest, abdomen, pelvis, and extremities. Skeleton: No abnormal uptake in the visualized axial and appendicular skeleton. Stable degenerative grade 1 anterolisthesis of L4 associated with L4-L5 facet arthropathy. Soft tissues: No abnormal uptake in the visualized head, neck, chest, abdomen, pelvis, and extremities. PET/PET skull to thigh INIT [id number] IMPRESSION: 3.1 x 2.4 cm peripancreatic nodularity described in the report of CT abdomen pelvis on 05/08/2024 represents a conglomerate of benign lymph nodes stable since 12/18/2018. No follow-up imaging is recommended. Diffusely increased uptake in the colon represents benign finding. Increased focal uptake in the midline between the top of the tongue and the palate requires correlation with direct exam to exclude focal mass.
== END 2024-05-16 13:53 | disposition home or self-care (01) ==
PROVIDERS: PCP Family Medicine; Visit Provider Family Medicine
DX: K86.89 Other specified diseases of pancreas (principal); R93.89 Abnormal findings on diagnostic imaging of other specified body structures; R59.0 Localized enlarged lymph nodes; R91.8 Other nonspecific abnormal finding of lung field; R93.2 Abnormal findings on diagnostic imaging of liver and biliary tract; K76.89 Other specified diseases of liver; Z90.49 Acquired absence of other specified parts of digestive tract; Z90.710 Acquired absence of both cervix and uterus; R93.7 Abnormal findings on diagnostic imaging of other parts of musculoskeletal system; M47.896 Other spondylosis, lumbar region
CPT/HCPCS: 78815; A9552

== ENCOUNTER 2024-06-19 07:53 | Day surgery (SDC) | payer OTHER, MEDICARE, SELFPAY ==
--- NOTE | 2024-06-19 08:09 | W.PM.OPSUD ---
Surgery/Procedure H&P Update DATE OF PROCEDURE: June 19, 2024 DATE H&P PERFORMED: 05/20/24 H&P UPDATE INFORMATION: I have reviewed H&P completed within last 30 days, I have examined patient prior to procedure, No changes to prior documentation, Changes to prior documentation as noted here and Risks and benefits of the procedure reviewed PLANNED PROCEDURE: Operation Date: 06/19/24 09:40 Proposed Procedures p Colonoscopy 74694 G0105 Z12.11(Not Applicable) - Naseem Jackson MD
[2024-06-19 08:14] VITALS: BP 135/80; PULSE 89; RESP 18; TEMP 36.1; O2SAT 95; BMI 38.5
[2024-06-19] MEDS: sodium chloride 0.9% 1,000 ML 15 ML IV (08:22)
[2024-06-19 08:27] LABS: Glucose Point of Care 267 mg/dL (70-110)
--- NOTE | 2024-06-19 08:46 | PC.NURSE ---
Patient belongings red tank top, white undershirt, don the pooh fleece pants, red tennis shoes, blue wallet with stars, meyers hoodie, gold ring
--- NOTE | 2024-06-19 09:01 | ANES.PREANE2 ---
Pre-Anesthetic Assessment Height/Weight: Height 1.68 m Weight 108.409 kg Temp Pulse Resp BP Pulse Ox O2 Del Method 97.0 F L 89 18 135/80 95 Room Air 06/19/24 08:14 06/19/24 08:14 06/19/24 08:14 06/19/24 08:14 06/19/24 08:14 06/19/24 08:14 Preop Diagnosis: Screening Operation Date: 06/19/24 09:40 Proposed Procedures p Colonoscopy 13911 G0105 Z12.11(Not Applicable) - Naseem Jackson MD Was Beta Elbert taken within 24 hours: N/A Was Clonidine taken within 24 hours: N/A Last intake: Intake Last Liquid Date 06/18/24 Last Liquid Time 23:55 Last Solid Date 06/17/24 Last Solid Time 23:55 Social No alcohol and No tobacco Exam alert, oriented x 3, clear to auscultation bilaterally and regular rate & rhythm Airway Submandibular: within normal limits Cervical ROM: within normal limits Mallampati: Class II Dentition: false History/ROS No significant history except as noted and No significant complaints Pulmonary None reported CV/HEM Hypertension None reported Hepatic None reported GI Gastroesophageal Reflux Disease Metabolic Diabetes Mellitus, Morbid Obesity and Thyroid Disease Musc/skel Lower Back Pain Neuropsych Anxiety and Neuropathy Anesthetic Plan ASA status: 3 Anesthesia: Anesthesia Evaluation and MAC Risk of > 500 ml blood loss (7ml/kg in children): No Medications/Allergies Home Medications ?Medication ?Instructions ?Recorded ?Confirmed ?Last Taken ?Type insulin syringe-needle U-100 1 mL #100 ea 02/26/23 05/26/24 Unknown Rx 31 gauge x 5/16 (BD Insulin Syringe Ultra-Fine) baclofen 10 mg tablet 20 mg PO TID 08/29/23 06/17/24 06/18/24 History diabetic shoes with 3 inserts #1 ea 09/24/23 05/26/24 Unknown Rx lisinopril 10 1 tab PO DAILY #90 tabs 03/28/24 06/17/24 06/18/24 Rx mg-hydrochlorothiazide 12.5 mg tablet pen needle, diabetic 31 gauge x #100 ea 04/11/24 05/26/24 Unknown Rx 1/4 (Comfort EZ Pen [place]) custom inserts #1 ea 04/23/24 05/26/24 Unknown Rx polyethylene glycol 3350 17 17 g PO DAILY 7 days #238 grams 05/20/24 06/17/24 06/17/24 Rx gram/dose oral powder (Miralax) insulin glargine-aglr 100 unit/mL 18 unit (0.18 mL) SUBCUT DAILY 30 05/26/24 06/17/24 06/18/24 Rx (3 mL) subcutaneous pen (Rezvogl days #15 mL KwikPen) buspirone 5 mg tablet 5 mg PO BID 06/17/24 06/17/24 06/18/24 History gabapentin 400 mg capsule 400 mg PO TID 06/17/24 06/17/24 06/18/24 History glipizide 5 mg tablet 10 mg PO TID 06/17/24 06/17/24 06/18/24 History lovastatin 40 mg tablet 40 mg PO BEDTIME 06/17/24 06/17/24 06/17/24 History metformin 1,000 mg tablet 1,000 mg PO BID 06/17/24 06/17/24 06/18/24 History venlafaxine 150 mg 150 mg PO DAILY 06/17/24 06/17/24 06/17/24 History capsule,extended release 24 hr (Effexor XR) Allergies Allergy/AdvReac Type Severity Reaction Status Date / Time No Known Allergies Allergy Verified 06/17/24 08:36 Current Medications Generic Name Dose Route Start Last Admin Trade Name Freq PRN Reason Stop Dose Admin Sodium Chloride 1,000 mls @ 15 mls/hr 06/19/24 07:56 06/19/24 08:22 Sodium Chloride 0.9% IV 06/20/24 07:55 15 mls/hr .Q24H PRN Administration COLONOSCOPY FLUIDS PFSH Anesthesia Medical History Diabetes type 2, uncontrolled Neuropathy Diabetes mellitus Hypertension Hypercholesteremia Anxiety Surgical History S/P excision of lipoma (07/28/20) right lower back H/O removal of cyst History of hysterectomy Ovaries in place History of cholecystectomy Family History Father Diabetes Social History Smoking and tobacco/nicotine status: former use of tobacco/nicotine Quit status (tobacco/nicotine): has quit using Second hand smoke exposure: Yes Alcohol intake: current Alcohol intake frequency: holidays/special occasions only Data Anesthesia Cardiac Studies: No Data to Display
[2024-06-19 09:54] VITALS: BP 100/65; PULSE 85; RESP 16; TEMP 36.1; O2SAT 93
[2024-06-19 10:02] VITALS: BP 114/72; PULSE 79; RESP 16; O2SAT 96
[2024-06-19 10:16] VITALS: BP 114/62; PULSE 91; RESP 16; O2SAT 94
--- NOTE | 2024-06-19 10:28 | ANE.PACU2 ---
Inpatient post-anesthesia follow up: Airway intact: Yes Vital signs: Temperature 97.0 F Pulse Rate 91 Respiratory Rate 16 Blood Pressure 114/62 Pulse Oximetry 94 Oxygen Delivery Me thod Room Air Oxygen Flow Rate Fraction of Inspir ed Oxygen Hydration adequate: Yes Nausea and vomiting: No Pain level: 1 Mental status: Baseline
== END 2024-06-19 10:28 | disposition home or self-care (01) ==
PROVIDERS: PCP Family Medicine; Visit Provider Surgery
PROC: 0DJD8ZZ Inspection of Lower Intestinal Tract, Via Natural or Artificial Opening Endoscopic (ICD-10-PCS; CPT 45378; principal; 2024-06-19 09:40)
DX: Z12.11 Encounter for screening for malignant neoplasm of colon (principal); D12.3 Benign neoplasm of transverse colon; D12.5 Benign neoplasm of sigmoid colon; K62.1 Rectal polyp; I10 Essential (primary) hypertension; K21.9 Gastro-esophageal reflux disease without esophagitis; E66.01 Morbid (severe) obesity due to excess calories; E11.40 Type 2 diabetes mellitus with diabetic neuropathy, unspecified; Z79.899 Other long term (current) drug therapy; E07.9 Disorder of thyroid, unspecified; Z79.84 Long term (current) use of oral hypoglycemic drugs; Z79.4 Long term (current) use of insulin; Z68.38 Body mass index [BMI] 38.0-38.9, adult; Z87.891 Personal history of nicotine dependence; Z86.0100 Personal history of colon polyps, unspecified
CPT/HCPCS: 36416; 45380; 45385; 82962; 88305; J2704; J7030

== ENCOUNTER 2024-07-02 08:08 | Outpatient (CLI) | payer OTHER, MEDICARE, SELFPAY ==
[2024-07-02 09:03] LABS: Alanine Aminotransferase 21 U/L (0-33); Albumin Level 4.1 g/dL (3.5-5.2); Alkaline Phosphatase 102 U/L (35-105); Anion Gap 16.3 (5-19); Aspartate Amino Transferase 14 U/L (0-32); Blood Urea Nitrogen 10 mg/dL (6-20); Carbon Dioxide 23 mmol/L (22-29); Chloride 98 mmol/L (98-107); Chol HDL Ratio 3.44 mg/dL (0.0-4.40); Cholesterol 124 mg/dL (0-200); Estmated Average Glucose 217; Globulin 3.1 g/dL (1.3-4.6); Glomerular Filtration Rate 132.8 mL/min (90-130); Glucose 317 mg/dL (65-115); HDL Cholesterol 36 mg/dL (60-100); Hemoglobin A1C 9.2 % (4.0-6.0); LDL Cholesterol Calculated 40 mg/dL (50-129); LDL HDL Ratio 1.11 RATIO (0.00-3.22); Osmolality Calculated 287 mOsm/kg (285-295); Potassium 4.3 mmol/L (3.5-5.1); Sodium 133 mmol/L (136-145); Total Bilirubin 0.3 mg/dL (0.15-1.2); Total Protein 7.2 g/dL (6.6-8.7); Triglycerides 238 mg/dL (0-150)
[2024-07-02 09:22] LABS: Creatinine Urine, Random 83 mg/dL (28-217); Microalbum Creatinine Ratio Ur 12 mg/dL (0-20); Microalbumin Random Urine 1 ug/dL (0-20)
== END 2024-07-02 08:09 | disposition home or self-care (01) ==
LOC: LAB 08:10
PROVIDERS: PCP Family Medicine; Visit Provider Internal Medicine
DX: E78.2 Mixed hyperlipidemia (principal); E88.810 Metabolic syndrome
CPT/HCPCS: 36415; 80053; 80061; 82044; 83036

== ENCOUNTER 2024-07-14 10:57 | Emergency (ER) | payer OTHER, MEDICARE, SELFPAY ==
[2024-07-14 11:04] VITALS: BP 126/74; PULSE 103; TEMP 36.8; O2SAT 96; BMI 37.4
--- NOTE | 2024-07-14 14:03 | CT_ITS ---
WS: [id number] CT HEAD TECHNIQUE: Noncontrast CT of the head obtained from the skullbase to the vertex. CLINICAL INFORMATION: right arm numbness, heaviness COMPARISON: None. DLP: 1033.[address] scans at [facility] use at least one of these dose optimization techniques: automated exposure control; mA and/or kV adjustment per patient size (includes targeted exams where dose is matched to clinical indication); or iterative reconstruction. FINDINGS: No evidence of intracranial hemorrhage or mass effect. Ventricular system and basal cisterns are patent. No extra-axial fluid collections. No evidence of mass or mass effect. Normal tejada-white differentiation. Paranasal sinuses and mastoid air cells are well aerated. .Normal visualized soft tissues. Congenital incomplete C1 ring partially visualized. CT/CT head wo con* [id number] IMPRESSION: 1. No evidence of intracranial hemorrhage or mass effect. 2. No acute intracranial findings.
[2024-07-14 14:17] LABS: Basophils # 0.1 10^3/uL (0.0-0.1); Basophils % 0.5 %; Eosinophils # 0.1 10^3/uL (0.0-0.8); Eosinophils % 0.5 %; Hematocrit 51.5 % (36-47); Lymphocytes # 3.5 10^3/uL (0.8-4.8); Mean Corpuscular HGB Conc 33.6 g/dL (30-55); Mean Corpuscular Hemoglobin 30.6 pg (27-33); Mean Corpuscular Volume 91.2 fl (85-98); Mean Platelet Volume 11.1 fL (7.4-10.4); Monocytes # 0.5 10^3/uL (0.2-0.9); Monocytes % 4.3 %; Neutrophils # 8.16 10^3/uL (1.8-7.7); Neutrophils % 66.2 %; Nucleated Red Blood Cells % 0 %; Platelet Count 202 10^3/cmm (157-399); Red Blood Count 5.65 10^6/uL (3.85-5.65); Red Cell Distribution Width 12.7 % (12.1-15.1); White Blood Count 12.32 10^3/uL (3.29-11.43)
--- NOTE | 2024-07-14 14:19 | ED_ITS ---
HPI - Extremity Problem 2 General: Chief complaint: Extremity Problem,Nontraumatic Stated complaint: dr salazar, numbness in R arm Time Seen by Provider: 07/14/24 13:55 History of Present Illness: 44-year-old female presents with some he aviness and numbness/tingling in her right arm. She reports has been going on since 1 AM yesterday morning. Patient was seen by her primary care provider today and sent her into the ER for evaluation worried about a possible stroke. Patient has no other complaints. She does have the ability to move her arm and just feels numb and heavy. Also worried about potential cervical paresthesia. She Associated symptoms: Deny chest pain or fever(s) Related Data Home Medications ?Medication ?Instructions ?Recorded ?Confirmed baclofen 10 mg tablet 20 mg PO TID 08/29/23 buspirone 5 mg tablet 5 mg PO BID 06/17/24 5 gabapentin 400 mg capsule 400 mg PO TID 06/17/2407/14 glipizide 5 mg tablet 10 mg PO TID 06/17/24 lovastatin 40 mg tablet 40 mg PO BEDTIME 06/17/24 venlafaxine 150 mg 150 mg PO QPM 06/17/2407/14 capsule,extended release 24 hr (Effexor XR) Previous Rx's ?Medication ?Instructions ?Recorded insulin syringe-needle U-100 1 mL #100 ea 02/26/23 31 gauge x 5/16 (BD Insulin Syringe Ultra-Fine) diabetic shoes with 3 inserts #1 ea 09/24/23 lisinopril 10 1 tab PO DAILY #90 tabs 03/12 10/03 mg-hydrochlorothiazide 12.5 mg tablet pen needle, diabetic 31 gauge x #100 ea 04/11/2403/15 (Comfort EZ Pen [place]) custom inserts #1 ea 04/23/24 insulin glargine 100 unit/mL (3 15 unit (0.15 mL) SUBC UT QAM #15 mL 07/10/24 mL) subcutaneous pen (Lantus Solostar U-100 Insulin) Allergies Allergy/AdvReac Type Severity Reaction Status Date / Time No Known Allergies Allergy Verified 07/14/24 11:10 Review of Systems 2 Const: Denies: fever(s) or chills Card: Denies: chest pain or palpitations Resp: Denies: dyspnea or wheezing GI: Denies: abdominal pain, nausea or vomiting Neuro: Reports: other (Please see HPI) PFSH ED 2 PFSH: Medical History Diabetes type 2, uncontrolled Neuropathy Diabetes mellitus Hypertension Hypercholesteremia Anxiety Surgical History S/P excision of lipoma (07/28/20) right lower back H/O removal of cyst History of hysterectomy Ovaries in place History of cholecystectomy Family History Father Diabetes Social History Smoking and tobacco/nicotine status: never used tobacco/nicotine Quit status (tobacco/nicotine): has quit using Second hand smoke exposure: Yes Alcohol intake: current Alcohol intake frequency: holidays/special occasions only Physical Exam 2 Const: COMMON NORMALS: no acute distress, patient oriented x3 and alert Neck/C-Spine: COMMON NORMALS: full ROM and supple CERVICAL SPINE: Yes cervical ROM normal and No Cervical spine tenderness Resp: COMMON NORMALS: normal respiratory effort and clear to auscultation bilaterally AUSCULTATION: clear to auscultation bilaterally Cardio: COMMON NORMALS: regular rate and regular rhythm RATE: regular rate RHYTHM: regular rhythm GI: COMMON NORMALS: Soft to palpation and non-tender PALPATION: Yes Soft to palpation Extremity: NARRATIVE EXTREMITY EXAM: Full range of motion of right arm, complains of some heaviness and paresthesia. 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 strength right arm but still 5 out of 5) Psych: COMMON NORMALS: mental status grossly normal, cooperative and normal affect Skin: COMMON NORMALS: no rashes or lesions noted and turgor normal GENERAL SKIN EXAM: no rashes or lesions noted and turgor normal Course 2 Vital Signs: Vital signs: Vital Signs Temperature 98.2 F 07/14/24 11:04 Pulse Rate 101 H 07/14/24 15:10 Respiratory Rate 18 07/14/24 15:10 Blood Pressure 128/71 07/14/24 15:10 Pulse Oximetry 94 07/14/24 15:10 Oxygen Delivery Me thod Room Air 07/14/24 15:10 MDM - Extremity (Nontraumatic) Medical Decision Making Patient's labs are reviewed and are similar to her prior and appear to be near her baseline. Patient's negative CTA head. Patient's symptoms are much more consistent with a cervical radiculopathy versus a stroke. I did recommend she follow-up with her primary care provider for further outpatient evaluation and consider MRI of the cervical spine along with physical therapy. Patient stable and discharged home. Lab Data 07/14/24 14:11 07/14/24 14:[address] 07/14/24 14:03 IMPRESSION: 1. No evidence of intracranial hemorrhage or mass effect. 2. No acute intracranial findings. Laboratory Results WBC 12.32 10^3/uL (3.29-11.43) H 07/14/24 14:11 RBC 5.65 10^6/uL (3.85-5.65) 07/14/24 14:11 Hgb 17.30 g/dL (11.27-16.99) H 07/14/24 14:11 Hct 51.5 % (36-47) H 07/14/24 14:11 MCV 91.2 fl (85-98) 07/14/24 14:11 MCH 30.6 pg (27-33) 07/14/24 14:11 MCHC 33.6 g/dL (30-55) 07/14/24 14:11 RDW 12.7 % (12.1-15.1) 07/14/24 14:11 Plt Count 202 10^3/cmm (157-399) 07/14/24 14:11 MPV 11.1 fL (7.4-10.4) H 07/14/24 14:11 Neut % (Auto) 66.2 % 07/14/24 14:11 Lymph % (Auto) 28.0 % 07/14/24 14:11 [place] % (Auto) 4.3 % 07/14/24 14:11 Eos % (Auto) 0.5 % 07/14/24 14:11 Baso % (Auto) 0.5 % 07/14/24 14:11 Neut # (Auto) 8.16 10^3/uL (1.8-7.7) H 07/14/24 14:11 Lymph # (Auto) 3.5 10^3/uL (0.8-4.8) 07/14/24 14:11 [place] # (Auto) 0.5 10^3/uL (0.2-0.9) 07/14/24 14:11 Eos # (Auto) 0.1 10^3/uL (0.0-0.8) 07/14/24 14:11 Baso # (Auto) 0.1 10^3/uL (0.0-0.1) 07/14/24 14:11 Nucleated RBC % (auto) 0 % 07/14/24 14:11 Nucleated RBCs # 0.0 /100WBC 07/14/24 14:11 Sodium 133 mmol/L (136-145) L 07/14/24 14:11 Potassium 4.3 mmol/L (3.5-5.1) 07/14/24 14:11 Chloride 93 mmol/L (98-107) L 07/14/24 14:11 Carbon Dioxide 28 mmol/L (22-29) 07/14/24 14:11 Anion Gap 16.3 (5-19) 07/14/24 14:11 BUN 9 mg/dL (6-20) 07/14/24 14:11 Creatinine 0.7 mg/dL (0.5-0.9) 07/14/24 14:11 GFR Calculation 90.1 mL/min (90-130) 07/14/24 14:11 Glucose 355 mg/dL (65-115) H 07/14/24 14:11 Calculated Osmolality 289 mOsm/kg (285-295) 07/14/24 14:11 Calcium 9.9 mg/dL (8.5-10.5) 07/14/24 14:11 Magnesium 2.0 mg/dL (1.7-2.3) 07/14/24 14:11 Total Bilirubin 0.3 mg/dL (0.15-1.2) 07/14/24 14:11 AST 24 U/L (0-32) 07/14/24 14:11 ALT 32 U/L (0-33) 07/14/24 14:11 Alkaline Phosphatase 116 U/L (35-105) H 07/14/24 14:11 Total Protein 8.2 g/dL (6.6-8.7) 07/14/24 14:11 Albumin 4.4 g/dL (3.5-5.2) 07/14/24 14:11 Globulin 3.8 g/dL (1.3-4.6) 07/14/24 14:11 TSH 1.45 uIU/mL (0.27-4.20) 07/14/24 14:11 All radiology interpretation(s) finalized by discharge Discharge Plan Discharge Patient Disposition: Home Clinical Impression: Cervical radiculopathy Condition: Stable Prescriptions: No Action (DME) diabetic shoes with 3 inserts See Rx Instructions .Route .MEDSUPPLY Qty: 1 0RF Rx Instructions: As directed to the shoe guys (DME) pen needle, diabetic [Comfort EZ Pen [place]] 31 gauge x 1/4 needle See Rx Instructions .Route Qty: 100 3RF Rx Instructions: As directed (DME) custom inserts See Rx Instructions .Route .MEDSUPPLY Qty: 1 0RF Rx Instructions: As directed to sole supports baclofen 10 mg tablet 20 mg PO TID insulin glargine [Lantus Solostar U-100 Insulin] 100 unit/mL (3 mL) insulin pen 15 unit SUBCUT QAM Qty: 15 6RF Rx Instructions: Start at 15 units and titrate as discussed (DME) insulin syringe-needle U-100 [BD Insulin Syringe Ultra-Fine] 1 mL 31 gauge x 5/16 syringe See Rx Instructions .ROUTE .COMPLEX Qty: 100 12RF Dose Instruction: USE DIRECTED THREE TIMES DAILY Rx Instructions: USE DIRECTED THREE TIMES DAILY lisinopril-hydrochlorothiazide 10-12.5 mg tablet 1 tab PO DAILY Qty: 90 3RF buspirone 5 mg tablet 5 mg PO BID lovastatin 40 mg tablet 40 mg PO BEDTIME gabapentin 400 mg capsule 400 mg PO TID venlafaxine [Effexor XR] 150 mg capsule,extended release 24hr 150 mg PO QPM glipizide 5 mg tablet 10 mg PO TID Discharge Orders: Discharge ED (Routine); Ordered 07/14/24 Ordered By: Javier Palumbo Referrals: Marco Antonio Valladares MD [Primary Care Provider, Family Practice] Patient Instructions: Cervical Radiculopathy (ED), Opioid Safety, Pain Management Activity Restrictions/Additional Instructions: Please follow-up with your primary care provider and consider outpatient physical therapy and possible MRI of the cervical spine that further evaluate for cervical radiculopathy. Gentle neck stretching. Please be sure you have proper pillows and neck support while sleeping. Print Language: Swedish Coding Level of Care Code ED Measurer Machine for Gabino Holland
[2024-07-14 14:45] LABS: Alanine Aminotransferase 32 U/L (0-33); Albumin Level 4.4 g/dL (3.5-5.2); Alkaline Phosphatase 116 U/L (35-105); Anion Gap 16.3 (5-19); Aspartate Amino Transferase 24 U/L (0-32); Blood Urea Nitrogen 9 mg/dL (6-20); Calcium 9.9 mg/dL (8.5-10.5); Carbon Dioxide 28 mmol/L (22-29); Chloride 93 mmol/L (98-107); Creatinine Clr Calc Pharmacy 127.3384; Globulin 3.8 g/dL (1.3-4.6); Glomerular Filtration Rate 90.1 mL/min (90-130); Glucose 355 mg/dL (65-115); Osmolality Calculated 289 mOsm/kg (285-295); Potassium 4.3 mmol/L (3.5-5.1); Sodium 133 mmol/L (136-145); Thyroid Stimulating Hormone 1.45 uIU/mL (0.27-4.20); Total Bilirubin 0.3 mg/dL (0.15-1.2); Total Protein 8.2 g/dL (6.6-8.7)
[2024-07-14 15:10] VITALS: BP 128/71; PULSE 101; RESP 18; O2SAT 94
== END 2024-07-14 15:25 | disposition home or self-care (01) ==
PROVIDERS: Emergency Provider Student in an Organized Health Care Education/Training Program; PCP Family Medicine
DX: M54.12 Radiculopathy, cervical region (principal); Z79.4 Long term (current) use of insulin; E11.40 Type 2 diabetes mellitus with diabetic neuropathy, unspecified; I10 Essential (primary) hypertension
CPT/HCPCS: 36415; 70450; 80053; 83735; 84443; 85025; 99284

== ENCOUNTER 2024-07-17 08:42 | Day surgery (SDC) | payer OTHER, MEDICARE, SELFPAY ==
[2024-07-17 08:50] VITALS: BP 135/90; PULSE 93; RESP 18; TEMP 35.8; O2SAT 95; BMI 37.4
--- NOTE | 2024-07-17 09:01 | W.PM.OPSUD ---
Surgery/Procedure H&P Update DATE OF PROCEDURE: July 17, 2024 DATE H&P PERFORMED: 07/02/24 H&P UPDATE INFORMATION: I have reviewed H&P completed within last 30 days, I have examined patient prior to procedure, No changes to prior documentation, H&P is in [facility] EMR on date indicated and Risks and benefits of the procedure reviewed PLANNED PROCEDURE: Operation Date: 07/17/24 10:35 Proposed Procedures p EGD 75657 R10.13(Not Applicable) - Naseem Jackson MD
[2024-07-17] MEDS: sodium chloride 0.9% 500 ML 999 ML IV (09:14)
--- NOTE | 2024-07-17 09:42 | ANES.PREANE2 ---
Pre-Anesthetic Assessment Height/Weight: Height 1.7 m Weight 108.409 kg Temp Pulse Resp BP Pulse Ox O2 Del Method 96.5 F L 93 18 135/90 95 Room Air 07/17/24 08:50 07/17/24 08:50 07/17/24 08:50 07/17/24 08:50 07/17/24 08:50 07/17/24 08:50 Preop Diagnosis: Abd Pain Operation Date: 07/17/24 10:35 Proposed Procedures p EGD 96868 R10.13(Not Applicable) - Naseem Jackson MD Was Beta Elbert taken within 24 hours: N/A Was Clonidine taken within 24 hours: N/A Last intake: Intake Last Liquid Date 07/16/24 Last Liquid Time 00:00 Last Solid Date 07/16/24 Last Solid Time 21:00 Social Tobacco Exam alert, oriented x 3, clear to auscultation bilaterally and regular rate & rhythm Airway Submandibular: within normal limits Cervical ROM: within normal limits Mallampati: Class II Dentition: false History/ROS No significant history except as noted and No significant complaints Pulmonary Chronic Obstructive Pulmonary Disease CV/HEM Hypertension None reported Hepatic None reported GI Gastroesophageal Reflux Disease Metabolic Diabetes Mellitus, Morbid Obesity and Thyroid Disease Neuropsych Neuropathy Anesthetic Plan ASA status: 3 Anesthesia: Anesthesia Evaluation and MAC Risk of > 500 ml blood loss (7ml/kg in children): No Medications/Allergies Home Medications ?Medication ?Instructions ?Recorded ?Confirmed ?Last Taken ?Type insulin syringe-needle U-100 1 mL #100 ea 02/26/23 07/14/24 07/16/24 21:30 Rx 31 gauge x 5/16 (BD Insulin Syringe Ultra-Fine) baclofen 10 mg tablet 20 mg PO TID 08/29/23 07/14/24 07/16/24 21:30 History diabetic shoes with 3 inserts #1 ea 09/24/23 07/14/24 07/16/24 21:30 Rx lisinopril 10 1 tab PO DAILY #90 tabs 03/28/24 07/14/24 07/16/24 21:30 Rx mg-hydrochlorothiazide 12.5 mg tablet pen needle, diabetic 31 gauge x #100 ea 04/11/24 07/14/24 07/16/24 21:30 Rx 1/4 (Comfort EZ Pen [place]) custom inserts #1 ea 04/23/24 07/14/24 07/16/24 21:30 Rx buspirone 5 mg tablet 5 mg PO BID 06/17/24 07/14/24 07/16/24 21:30 History gabapentin 400 mg capsule 400 mg PO TID 06/17/24 07/14/24 07/16/24 21:30 History glipizide 5 mg tablet 10 mg PO TID 06/17/24 07/14/24 07/16/24 21:30 History lovastatin 40 mg tablet 40 mg PO BEDTIME 06/17/24 07/14/24 07/16/24 21:30 History venlafaxine 150 mg 150 mg PO QPM 06/17/24 07/14/24 07/16/24 21:30 History capsule,extended release 24 hr (Effexor XR) insulin glargine 100 unit/mL (3 15 unit (0.15 mL) SUBCUT QAM #15 mL 07/10/24 07/14/24 07/16/24 21:30 Rx mL) subcutaneous pen (Lantus Solostar U-100 Insulin) Allergies Allergy/AdvReac Type Severity Reaction Status Date / Time No Known Allergies Allergy Verified 07/17/24 08:48 Current Medications Generic Name Dose Route Start Last Admin Trade Name Freq PRN Reason Stop Dose Admin Sodium Chloride 500 mls @ 999 mls/hr 07/17/24 08:42 07/17/24 09:14 Sodium Chloride 0.9% IV 999 mls/hr .Q31M PRN Administration HYPOTENSION PFSH Anesthesia Medical History Diabetes type 2, uncontrolled Neuropathy Diabetes mellitus Hypertension Hypercholesteremia Anxiety Surgical History S/P excision of lipoma (07/28/20) right lower back H/O removal of cyst History of hysterectomy Ovaries in place History of cholecystectomy Family History Father Diabetes Social History Smoking and tobacco/nicotine status: never used tobacco/nicotine Quit status (tobacco/nicotine): has quit using Second hand smoke exposure: Yes Alcohol intake: current Alcohol intake frequency: holidays/special occasions only
[2024-07-17] MEDS: insulin regular-human 100 units/1 mL 10 UNIT IVP (09:46)
[2024-07-17 10:06] VITALS: BP 131/86; PULSE 90; RESP 20; TEMP 36.2; O2SAT 98
[2024-07-17 10:14] LABS: Glucose Point of Care 356 mg/dL (70-110)
[2024-07-17 10:14] LABS: Glucose Point of Care 341 mg/dL (70-110)
[2024-07-17 10:31] LABS: Glucose Point of Care 335 mg/dL (70-110)
[2024-07-17 10:34] VITALS: BP 129/93; PULSE 98; RESP 18; O2SAT 96
--- NOTE | 2024-07-17 10:50 | ANE.PACU2 ---
Inpatient post-anesthesia follow up: Airway intact: Yes Vital signs: Temperature 97.2 F Pulse Rate 98 Respiratory Rate 18 Blood Pressure 129/93 Pulse Oximetry 96 Oxygen Delivery Me thod Room Air Oxygen Flow Rate 6 Fraction of Inspir ed Oxygen Hydration adequate: Yes Nausea and vomiting: No Pain level: 1 Mental status: Baseline
== END 2024-07-17 11:00 | disposition home or self-care (01) ==
PROVIDERS: PCP Family Medicine; Visit Provider Surgery
PROC: 0DJ08ZZ Inspection of Upper Intestinal Tract, Via Natural or Artificial Opening Endoscopic (ICD-10-PCS; principal; 2024-07-17 10:35)
DX: K29.00 Acute gastritis without bleeding (principal); K29.50 Unspecified chronic gastritis without bleeding; K22.70 Barrett's esophagus without dysplasia; K21.00 Gastro-esophageal reflux disease with esophagitis, without bleeding; K44.9 Diaphragmatic hernia without obstruction or gangrene; J44.9 Chronic obstructive pulmonary disease, unspecified; I10 Essential (primary) hypertension; E66.01 Morbid (severe) obesity due to excess calories; E11.40 Type 2 diabetes mellitus with diabetic neuropathy, unspecified; Z79.899 Other long term (current) drug therapy; Z79.84 Long term (current) use of oral hypoglycemic drugs; Z79.4 Long term (current) use of insulin; Z68.37 Body mass index [BMI] 37.0-37.9, adult; Z90.49 Acquired absence of other specified parts of digestive tract
CPT/HCPCS: 36416; 43239; 82962; 88305; 88342; J1815; J2704; J7040

== ENCOUNTER 2024-07-29 07:08 | Outpatient (CLI) | payer OTHER, MEDICARE, SELFPAY ==
[2024-07-29 08:31] LABS: Calcium 9.5 mg/dL (8.5-10.5)
[2024-07-29 08:38] LABS: Cortisol Random 13.46 ug/dL (2.47-19.5); Free T4 Free Thyroxine 1.26 ng/dL (0.82-1.77); Parathyroid Hormone 36.1 pg/mL (15-65)
== END 2024-07-29 07:09 | disposition home or self-care (01) ==
PROVIDERS: PCP Family Medicine; Visit Provider Internal Medicine
DX: E88.40 Mitochondrial metabolism disorder, unspecified (principal)
CPT/HCPCS: 36415; 82310; 82533; 83970; 84439; 84443

== ENCOUNTER 2024-08-15 13:42 | Outpatient (CLI) | payer OTHER, MEDICARE, SELFPAY | END 2024-08-15 13:43 | disposition home or self-care (01) | LOC: LAB 13:44 | PROVIDERS: PCP Family Medicine; Visit Provider Surgery | DX: K29.70 Gastritis, unspecified, without bleeding (principal); B96.81 Helicobacter pylori [H. pylori] as the cause of diseases classified elsewhere | CPT/HCPCS: 87338 ==

== ENCOUNTER 2024-10-22 08:56 | Outpatient (CLI) | payer OTHER, MEDICARE, SELFPAY ==
[2024-10-22 10:29] LABS: Alanine Aminotransferase 31 U/L (0-33); Albumin Level 4.4 g/dL (3.5-5.2); Alkaline Phosphatase 107 U/L (35-105); Anion Gap 17.2 (5-19); Aspartate Amino Transferase 28 U/L (0-32); Blood Urea Nitrogen 8 mg/dL (6-20); Calcium 9.6 mg/dL (8.5-10.5); Carbon Dioxide 25 mmol/L (22-29); Chloride 97 mmol/L (98-107); Cholesterol 129 mg/dL (0-200); Globulin 3.3 g/dL (1.3-4.6); Glucose 314 mg/dL (65-115); HDL Cholesterol 33 mg/dL (60-100); Osmolality Calculated 290 mOsm/kg (285-295); Potassium 4.2 mmol/L (3.5-5.1); Sodium 135 mmol/L (136-145); Total Protein 7.7 g/dL (6.6-8.7); Triglycerides 189 mg/dL (0-150)
[2024-10-22 10:45] LABS: Estmated Average Glucose 246; Hemoglobin A1C 10.2 % (4.0-6.0)
[2024-10-22 17:03] LABS: Creatinine Urine, Random 23 mg/dL (28-217)
[2024-10-22 17:04] LABS: Microalbum Creatinine Ratio Ur 43 mg/dL (0-20)
== END 2024-10-22 08:57 | disposition home or self-care (01) ==
PROVIDERS: PCP Family Medicine; Visit Provider Internal Medicine
DX: M19.079 Primary osteoarthritis, unspecified ankle and foot (principal); E78.2 Mixed hyperlipidemia; L83 Acanthosis nigricans; R63.5 Abnormal weight gain; E88.819 Insulin resistance, unspecified
CPT/HCPCS: 36415; 80053; 80061; 82044; 83036

== ENCOUNTER → 2024-11-12 07:27 | Outpatient (BNVA) | payer MEDICARE, OTHER, SELFPAY | PROVIDERS: PCP Family Medicine; Visit Provider Podiatrist Foot & Ankle Surgery | DX: E11.42 Type 2 diabetes mellitus with diabetic polyneuropathy (principal); L60.3 Nail dystrophy; G62.9 Polyneuropathy, unspecified; L84 Corns and callosities; M20.42 Other hammer toe(s) (acquired), left foot; I87.8 Other specified disorders of veins; Z79.4 Long term (current) use of insulin | CPT/HCPCS: 11721; 99213 ==

== ENCOUNTER 2025-01-20 07:18 | Outpatient (CLI) | payer OTHER, MEDICARE, SELFPAY ==
[2025-01-20 08:01] LABS: Estmated Average Glucose 232; Hemoglobin A1C 9.7 % (4.0-6.0)
[2025-01-20 08:09] LABS: Alanine Aminotransferase 33 U/L (0-33); Albumin Level 4.2 g/dL (3.5-5.2); Alkaline Phosphatase 117 U/L (35-105); Anion Gap 18.0 (5-19); Aspartate Amino Transferase 26 U/L (0-32); Blood Urea Nitrogen 10 mg/dL (6-20); Calcium 9.7 mg/dL (8.5-10.5); Carbon Dioxide 23 mmol/L (22-29); Chloride 99 mmol/L (98-107); Cholesterol 158 mg/dL (0-200); Globulin 3.3 g/dL (1.3-4.6); Glucose 207 mg/dL (65-115); HDL Cholesterol 39 mg/dL (60-100); Osmolality Calculated 287 mOsm/kg (285-295); Potassium 4.0 mmol/L (3.5-5.1); Sodium 136 mmol/L (136-145); Total Protein 7.5 g/dL (6.6-8.7); Triglycerides 237 mg/dL (0-150)
[2025-01-20 08:18] LABS: Creatinine Urine, Random 76 mg/dL (28-217); Microalbum Creatinine Ratio Ur 13 mg/dL (0-20)
== END 2025-01-20 07:19 | disposition home or self-care (01) ==
LOC: LAB 07:20
PROVIDERS: PCP Family Medicine; Visit Provider Internal Medicine
DX: L83 Acanthosis nigricans (principal); R63.5 Abnormal weight gain; M19.079 Primary osteoarthritis, unspecified ankle and foot; E78.2 Mixed hyperlipidemia; E88.810 Metabolic syndrome
CPT/HCPCS: 36415; 80053; 80061; 82044; 83036

== ENCOUNTER → 2025-03-09 13:54 | Outpatient (BNVA) | payer OTHER, MEDICARE, SELFPAY | PROVIDERS: PCP Family Medicine; Visit Provider Nurse Practitioner Family | DX: R34 Anuria and oliguria (principal) | CPT/HCPCS: 81000 ==